=== PATIENT | male | born 1955 | race Caucasian/White ===

== ENCOUNTER 2022-09-08 09:30 | Inpatient (IN) | payer MEDICARE, OTHER ==
[~2022-09-08] VITALS: Ht 167.6 cm; Wt 52.2 kg
[2022-09-08] VITALS (17 sets, daily range): BP systolic 94–129; BP diastolic 51–70
[2022-09-08 10:46] LABS: BASOPHILS % (AUTO) 0.9 % (0.0-2.0); LYMPHOCYTES # (AUTO) 0.7 K/uL (1.0-4.8); LYMPHOCYTES % (AUTO) 9.4 % (22.0-44.0); MEAN CORPUSCULAR HEMOGLOBIN 32.6 pg (26.0-34.0); MEAN CORPUSCULAR HGB CONC 33.4 G/dL (31.0-37.0); MEAN CORPUSCULAR VOLUME 98 fL (80-100); MONOCYTES # (AUTO) 0.6 K/uL (0.1-1.0); NEUTROPHILS # (AUTO) 6.3 K/uL (1.8-7.7); NEUTROPHILS % (AUTO) 80.7 % (40.0-70.0); PLATELET COUNT (AUTO) 241 K/uL (150-450); RED BLOOD CELL COUNT(AUTO) 1.65 MIL/uL (4.50-5.90); RED CELL DISTRIBUTION WIDTH 17.6 % (11.5-14.5)
[2022-09-08 10:52] LABS: CALCIUM, TOTAL 8.2 mg/dL (8.8-10.5); CREATININE 3.09 mg/dL (0.60-1.30); POTASSIUM 4.4 mmol/L (3.5-5.1)
[2022-09-08 10:58] LABS: HEMATOCRIT 16.1 % (41-53); HEMOGLOBIN 5.4 g/dL (13.5-17.5); PROTHROMBIN TIME 11.1 SEC (9.4-11.6)
[2022-09-08 11:02] LABS: ALBUMIN 2.4 g/dL (3.4-5.0); BILIRUBIN,TOTAL 0.2 mg/dL (0.1-1.0); TOTAL PROTEIN, SERUM 6.5 g/dL (6.4-8.2)
[2022-09-08] MEDS ORDERED: ONDANSETRON HCL 4 MG/2 ML VIAL IVP PRN (11:30)
[2022-09-08] MEDS ORDERED: MORPHINE SULFATE 2 MG/ML SYRINGE IVP PRN (11:30)
[2022-09-08] MEDS ORDERED: MAGNESIUM HYDROXIDE SUSPENSION 30 ML UDCUP PO PRN (11:30)
[2022-09-08] MEDS ORDERED: BISACODYL 10 MG RECTAL RECTAL SUPPOSITORY PR PRN (11:30)
[2022-09-08] MEDS ORDERED: ACETAMINOPHEN 325 MG TABLET PO PRN (11:30)
[2022-09-08] MEDS: HYDROCODONE/ACETAMINOPHEN 5-325 MG TABLET PO PRN ×2 (14:40→21:29)
[2022-09-08] MEDS: PANTOPRAZOLE SODIUM 40 MG/VIAL IVP SCH ×2 (14:40→20:23)
[2022-09-08] MEDS: FOLIC ACID/VIT B COMPLEX AND C TABLET PO SCH (17:17)
[2022-09-08] MEDS: MVI, ADULT NO.1 WITH VIT K 10 ML in SODIUM CHLORIDE 0.9% 1,000 ML IV SCH ×2 (17:17)
[2022-09-08] MEDS: CALCITRIOL 0.25 MCG CAPSULE PO SCH (17:17)
[2022-09-08] MEDS: DOCUSATE SODIUM 100 MG CAPSULE PO SCH (20:23)
[2022-09-09 03:47] VITALS: BP 146/73
[2022-09-09] MEDS ORDERED: PROPOFOL 1% 20 ML VIAL IVP ONE (06:29)
[2022-09-09] MEDS ORDERED: LIDOCAINE/PF 2% 5 ML VIAL IM ONE (06:29)
[2022-09-09] MEDS ORDERED: SODIUM CHLORIDE 0.9% 1,000 ML ONE (06:35)
[2022-09-09] MEDS ORDERED: SODIUM CHLORIDE 0.9% 1,000 ML IV SCH (07:00)
[2022-09-09 07:02] VITALS: BP 135/74
[2022-09-09 07:19] LABS: EOSINOPHILS % (AUTO) 1.2 % (1.0-6.0); HEMATOCRIT 24.2 % (41-53); HEMOGLOBIN 8.2 g/dL (13.5-17.5); LYMPHOCYTES # (AUTO) 0.9 K/uL (1.0-4.8); LYMPHOCYTES % (AUTO) 11.8 % (22.0-44.0); MEAN CORPUSCULAR HGB CONC 33.8 G/dL (31.0-37.0); MEAN CORPUSCULAR VOLUME 95 fL (80-100); MONOCYTES # (AUTO) 0.6 K/uL (0.1-1.0); MONOCYTES % (AUTO) 7.6 % (2.0-9.0); NEUTROPHILS # (AUTO) 5.8 K/uL (1.8-7.7); NEUTROPHILS % (AUTO) 78.4 % (40.0-70.0); PLATELET COUNT (AUTO) 211 K/uL (150-450); RED BLOOD CELL COUNT(AUTO) 2.55 MIL/uL (4.50-5.90); RED CELL DISTRIBUTION WIDTH 16.1 % (11.5-14.5)
[2022-09-09 07:54] LABS: % IRON SATURATION 74.1 % (30-44)
[2022-09-09 07:56] LABS: CREATININE 3.37 mg/dL (0.60-1.30); PHOSPHORUS 5.5 mg/dL (2.5-4.9); POTASSIUM 4.8 mmol/L (3.5-5.1)
[2022-09-09] MEDS ORDERED: FLUMAZENIL 0.1 MG/ML 5 ML VIAL IVP ONE (08:23)
[2022-09-09] MEDS ORDERED: ATROPINE SULFATE 0.1 MG/ML 10 ML SYRINGE IVP ONE (08:23)
[2022-09-09] MEDS ORDERED: NALOXONE HCL 0.4 MG/ML VIAL ONE (08:23)
[2022-09-09] MEDS ORDERED: EPINEPHrine 1:10,000 [1 MG/10 ML] SYRINGE ONE (08:23)
[2022-09-09] MEDS ORDERED: DiphenhydrAMINE HCL 50 MG/ML VIAL ONE (08:23)
[2022-09-09] MEDS ORDERED: SODIUM TETRADECYL SULFATE 3% 60 MG/2 ML VIAL IVP ONE (08:23)
[2022-09-09] MEDS ORDERED: PANTOPRAZOLE SODIUM 40 MG DR TABLET PO SCH (09:00)
[2022-09-09] MEDS: DOCUSATE SODIUM 100 MG CAPSULE PO SCH ×2 (09:00→21:00)
[2022-09-09] MEDS: CALCITRIOL 0.25 MCG CAPSULE PO SCH (10:21)
[2022-09-09] MEDS: PANTOPRAZOLE SODIUM 40 MG/VIAL IVP SCH ×2 (10:21→21:38)
[2022-09-09] MEDS: FOLIC ACID/VIT B COMPLEX AND C TABLET PO SCH (10:21)
[2022-09-09 11:10] VITALS: BP 132/70
[2022-09-09] MEDS: MVI, ADULT NO.1 WITH VIT K 10 ML in SODIUM CHLORIDE 0.9% 1,000 ML IV SCH ×2 (13:42)
[2022-09-09 15:50] VITALS: BP 130/76
[2022-09-09] MEDS: HYDROCODONE/ACETAMINOPHEN 5-325 MG TABLET PO PRN ×2 (16:55→22:04)
[2022-09-09 20:32] VITALS: BP 126/73
[2022-09-10] VITALS (7 sets, daily range): BP systolic 120–145; BP diastolic 61–71
[2022-09-10 00:06] LABS: GLUCOMETER DEV NAME(LOC) 5N.2C; GLUCOSE,POINT OF CARE 107 MG/DL (70-110)
[2022-09-10] MEDS: HYDROCODONE/ACETAMINOPHEN 5-325 MG TABLET PO PRN ×2 (05:49→13:52)
[2022-09-10 08:11] LABS: BASOPHILS % (AUTO) 1.2 % (0.0-2.0); EOSINOPHILS % (AUTO) 1.1 % (1.0-6.0); HEMATOCRIT 28.1 % (41-53); HEMOGLOBIN 9.3 g/dL (13.5-17.5); LYMPHOCYTES # (AUTO) 0.8 K/uL (1.0-4.8); LYMPHOCYTES % (AUTO) 9.3 % (22.0-44.0); MEAN CORPUSCULAR HEMOGLOBIN 31.8 pg (26.0-34.0); MEAN CORPUSCULAR HGB CONC 33.2 G/dL (31.0-37.0); MEAN CORPUSCULAR VOLUME 96 fL (80-100); MONOCYTES # (AUTO) 0.7 K/uL (0.1-1.0); MONOCYTES % (AUTO) 7.8 % (2.0-9.0); NEUTROPHILS % (AUTO) 80.6 % (40.0-70.0); PLATELET COUNT (AUTO) 268 K/uL (150-450); RED BLOOD CELL COUNT(AUTO) 2.93 MIL/uL (4.50-5.90)
[2022-09-10 08:19] LABS: CALCIUM, TOTAL 8.1 mg/dL (8.8-10.5); CREATININE 3.98 mg/dL (0.60-1.30); POTASSIUM 4.5 mmol/L (3.5-5.1)
[2022-09-10] MEDS: DOCUSATE SODIUM 100 MG CAPSULE PO SCH ×2 (09:00→20:39)
[2022-09-10] MEDS: MVI, ADULT NO.1 WITH VIT K 10 ML in SODIUM CHLORIDE 0.9% 1,000 ML IV SCH ×2 (09:56)
[2022-09-10] MEDS: FOLIC ACID/VIT B COMPLEX AND C TABLET PO SCH (09:56)
[2022-09-10] MEDS: CALCITRIOL 0.25 MCG CAPSULE PO SCH (09:56)
[2022-09-10] MEDS: PANTOPRAZOLE SODIUM 40 MG/VIAL IVP SCH ×2 (09:56→20:29)
[2022-09-10 09:57] LABS: C.DIFF GDH ANTIGEN, Stool Negative (Negative); C.DIFF TOXINS A&B, Stool Negative (Negative)
[2022-09-10] MEDS: EPOETIN ALFA 10,000 UNITS/ML VIAL SQ SCH (14:08)
[2022-09-10] MEDS: ETHYL ALCOHOL 62% ANTISEPTIC NASAL SANITIZER 0.6 ML AMPUL NASAL SCH (20:29)
[2022-09-10] MEDS: ZOLPIDEM TARTRATE 5 MG TABLET PO PRN (20:30)
[2022-09-11] MEDS: HYDROCODONE/ACETAMINOPHEN 5-325 MG TABLET PO PRN ×4 (00:55→18:01)
[2022-09-11] MEDS: MVI, ADULT NO.1 WITH VIT K 10 ML in SODIUM CHLORIDE 0.9% 1,000 ML IV SCH ×4 (05:02→18:01)
[2022-09-11 05:04] VITALS: BP 139/73
[2022-09-11 06:56] LABS: BASOPHILS % (AUTO) 0.9 % (0.0-2.0); EOSINOPHILS % (AUTO) 1.4 % (1.0-6.0); HEMATOCRIT 28.2 % (41-53); HEMOGLOBIN 9.3 g/dL (13.5-17.5); LYMPHOCYTES # (AUTO) 1.1 K/uL (1.0-4.8); LYMPHOCYTES % (AUTO) 19.2 % (22.0-44.0); MEAN CORPUSCULAR HEMOGLOBIN 31.6 pg (26.0-34.0); MEAN CORPUSCULAR HGB CONC 32.9 G/dL (31.0-37.0); MEAN CORPUSCULAR VOLUME 96 fL (80-100); MONOCYTES # (AUTO) 0.5 K/uL (0.1-1.0); MONOCYTES % (AUTO) 9.1 % (2.0-9.0); NEUTROPHILS % (AUTO) 69.4 % (40.0-70.0); PLATELET COUNT (AUTO) 257 K/uL (150-450); RED BLOOD CELL COUNT(AUTO) 2.93 MIL/uL (4.50-5.90); RED CELL DISTRIBUTION WIDTH 16.7 % (11.5-14.5)
[2022-09-11 07:11] LABS: CALCIUM, TOTAL 8.1 mg/dL (8.8-10.5); CREATININE 4.16 mg/dL (0.60-1.30); POTASSIUM 5.4 mmol/L (3.5-5.1)
[2022-09-11 07:48] VITALS: BP 149/74
[2022-09-11] MEDS: PANTOPRAZOLE SODIUM 40 MG/VIAL IVP SCH ×2 (08:59→21:00)
[2022-09-11] MEDS: DOCUSATE SODIUM 100 MG CAPSULE PO SCH ×2 (08:59→21:00)
[2022-09-11] MEDS: CALCITRIOL 0.25 MCG CAPSULE PO SCH (08:59)
[2022-09-11] MEDS: ETHYL ALCOHOL 62% ANTISEPTIC NASAL SANITIZER 0.6 ML AMPUL NASAL SCH ×2 (08:59→21:02)
[2022-09-11] MEDS: FOLIC ACID/VIT B COMPLEX AND C TABLET PO SCH (10:35)
[2022-09-11] MEDS ORDERED: ALPRAZolam 0.5 MG TABLET PO PRN (14:30)
[2022-09-11 15:12] VITALS: BP 147/79
[2022-09-11] MEDS ORDERED: PEG 3350/NA SULF,BICARB,CL/KCL 4000 ML SOLUTION PO ONE (16:00)
[2022-09-11 19:40] VITALS: BP 137/71
[2022-09-11] MEDS: ZOLPIDEM TARTRATE 5 MG TABLET PO PRN (21:02)
[2022-09-12] VITALS (9 sets, daily range): BP systolic 129–156; BP diastolic 66–79
[2022-09-12] MEDS: MVI, ADULT NO.1 WITH VIT K 10 ML in SODIUM CHLORIDE 0.9% 1,000 ML IV SCH ×4 (04:23→21:56)
[2022-09-12] MEDS: HYDROCODONE/ACETAMINOPHEN 5-325 MG TABLET PO PRN ×2 (08:29→21:58)
[2022-09-12] MEDS: FOLIC ACID/VIT B COMPLEX AND C TABLET PO SCH (09:00)
[2022-09-12] MEDS: DOCUSATE SODIUM 100 MG CAPSULE PO SCH ×2 (09:00→21:00)
[2022-09-12] MEDS: CALCITRIOL 0.25 MCG CAPSULE PO SCH (09:00)
[2022-09-12] MEDS: PANTOPRAZOLE SODIUM 40 MG/VIAL IVP SCH ×2 (09:29→21:56)
[2022-09-12] MEDS: ETHYL ALCOHOL 62% ANTISEPTIC NASAL SANITIZER 0.6 ML AMPUL NASAL SCH ×2 (09:29→21:57)
[2022-09-12 11:48] LABS: CALCIUM, TOTAL 8.1 mg/dL (8.8-10.5); CREATININE 4.4 mg/dL (0.60-1.30); POTASSIUM 4.8 mmol/L (3.5-5.1)
[2022-09-12 11:51] LABS: MAGNESIUM 1.8 mg/dL (1.80-2.40); PHOSPHORUS 5.3 mg/dL (2.5-4.9)
[2022-09-12] MEDS ORDERED: HEPARIN SODIUM,PORCINE 1,000 UNITS/ML VIAL IVP ONE (12:00)
[2022-09-12] MEDS ORDERED: AMLO2.5T96 PO (13:15)
[2022-09-12] MEDS ORDERED: CALC0.2521 PO (13:15)
[2022-09-12] MEDS ORDERED: FOLI0.8T2 PO (13:15)
[2022-09-12] MEDS ORDERED: PANT-31 PO (13:15)
[2022-09-12] MEDS ORDERED: SODIUM CHLORIDE 0.9% 1,000 ML ONE (13:19)
[2022-09-12] MEDS ORDERED: SODIUM CHLORIDE 0.9% 1,000 ML IV ONE (14:00)
[2022-09-12] MEDS ORDERED: MIDAZOLAM HCL 2 MG/2 ML VIAL ONE ×2 (16:06→16:07)
[2022-09-12] MEDS ORDERED: FentaNYL CITRATE PF 100 MCG/2 ML VIAL ONE (16:07)
[2022-09-12] MEDS: ZOLPIDEM TARTRATE 5 MG TABLET PO PRN (21:58)
[2022-09-13] VITALS (8 sets, daily range): BP systolic 132–160; BP diastolic 62–79
[2022-09-13] MEDS: HYDROCODONE/ACETAMINOPHEN 5-325 MG TABLET PO PRN (03:20)
[2022-09-13] MEDS: CALCITRIOL 0.25 MCG CAPSULE PO SCH (08:20)
[2022-09-13] MEDS: DOCUSATE SODIUM 100 MG CAPSULE PO SCH (08:20)
[2022-09-13] MEDS: FOLIC ACID/VIT B COMPLEX AND C TABLET PO SCH (08:20)
[2022-09-13] MEDS: EPOETIN ALFA 10,000 UNITS/ML VIAL SQ SCH (08:21)
[2022-09-13] MEDS: PANTOPRAZOLE SODIUM 40 MG/VIAL IVP SCH (08:21)
[2022-09-13] MEDS: ETHYL ALCOHOL 62% ANTISEPTIC NASAL SANITIZER 0.6 ML AMPUL NASAL SCH (08:25)
[2022-09-13] MEDS ORDERED: HEPARIN SODIUM,PORCINE 1,000 UNITS/ML VIAL IVP ONE (17:59)
== END 2022-09-13 18:00 | DRG 377 ==
LOC: EMS 09:38 → 5N 13:11 → 6N 09-10 22:10
PROVIDERS: ADMIT Internal Medicine; ATTEND Internal Medicine
PROC: 30233N1 Transfusion of Nonautologous Red Blood Cells into Peripheral Vein, Percutaneous Approach (ICD-10-PCS; principal; 2022-09-08)
PROC: 0DB98ZX Excision of Duodenum, Via Natural or Artificial Opening Endoscopic, Diagnostic (ICD-10-PCS; 2022-09-09)
PROC: 0DB68ZX Excision of Stomach, Via Natural or Artificial Opening Endoscopic, Diagnostic (ICD-10-PCS; 2022-09-09)
PROC: 0DJD8ZZ Inspection of Lower Intestinal Tract, Via Natural or Artificial Opening Endoscopic (ICD-10-PCS; 2022-09-12)
PROC: 5A1D70Z Performance of Urinary Filtration, Intermittent, Less than 6 Hours Per Day (ICD-10-PCS; 2022-09-12)
PROC: 5A1D70Z Performance of Urinary Filtration, Intermittent, Less than 6 Hours Per Day (ICD-10-PCS; 2022-09-13)
DX: K29.81 Duodenitis with bleeding (principal); E43 Unspecified severe protein-calorie malnutrition; N18.6 End stage renal disease; I12.0 Hypertensive chronic kidney disease with stage 5 chronic kidney disease or end stage renal disease; K63.3 Ulcer of intestine; N17.9 Acute kidney failure, unspecified; Z68.1 Body mass index [BMI] 19.9 or less, adult; K44.9 Diaphragmatic hernia without obstruction or gangrene; E03.9 Hypothyroidism, unspecified; K21.9 Gastro-esophageal reflux disease without esophagitis; K64.8 Other hemorrhoids; J44.9 Chronic obstructive pulmonary disease, unspecified; E78.5 Hyperlipidemia, unspecified; F17.200 Nicotine dependence, unspecified, uncomplicated; Z99.2 Dependence on renal dialysis; Z93.3 Colostomy status; Z90.49 Acquired absence of other specified parts of digestive tract; Z83.3 Family history of diabetes mellitus; Z82.49 Family history of ischemic heart disease and other diseases of the circulatory system
CPT/HCPCS: 71045; 74176; 80048; 80053; 82271; 82550; 82728; 82962; 83540; 83550; 83735; 83880; 83970; 84100; 84484; 85025; 85610; 85730; 86850; 86900; 86901; 86923; 87081; 87324; 87340; 87449; 88305; 89055; 90935; 93005; 99285; C9113; J0171; J0461; J0885; J1200; J1644; J2250; J2310; J2704; J3010; J3490; J7030; P9016; Q9967; 36415-L1; 36415-TC